=== PATIENT | female | born 1970 | race Caucasian/White ===

== ENCOUNTER 2020-06-10 07:53 | Emergency (ER) | payer OTHER, SELFPAY ==
--- NOTE | ~2020-06-10 | XR_ITS ---
EXAMINATION: XR elbow RT min 3V EXAM DATE: 06/10/2020 08:28 INDICATION: Trauma, right elbow pain. Initial encounter. TECHNIQUE: Right elbow frontal, lateral with flexion, and oblique projections obtained and reviewed. Comparison is made to prior examination from 06/07/2016. FINDINGS: Right elbow anterior humeral line intact. There are no acute fractures or dislocations shelia ntified. There is no subcutaneous gas. There is soft tissue swelling over the elbow posteriorly. T here are no radiopaque foreign bodies. IMPRESSION: 1. XR elbow RT min 3V exam without acute osseous findings. 2. Soft tissue swelling. Reviewed, dictated and finalized at location A. PROVIDER
[2020-06-10 07:59] VITALS: BP 166/105; PULSE 105; RESP 18; TEMP 36.9; O2SAT 98
[2020-06-10] MEDS: HYDROcodone/acetaminophen (*CRX) 5-325 MG TABLET 1 TAB PO (08:25)
[2020-06-10] MEDS: TETANUS,DIPHTHERIA,AC PERTUSSIS ADULT (0.5 ML) BOOSTRIX IM (08:35)
--- NOTE | 2020-06-10 08:42 | ED.FALL ---
HPI - Fall General Chief Complaint: Fall Stated Complaint: fall, right arm pain Time Seen by Provider: 06/10/20 08:02 History of Present Illness HPI Narrative: Patient is a 50-year-old female who presents ER with right elbow pain. Patient reports she was walking down her steps when she slipped on some pandey and drove her right elbow into the ground. She had sudden onset pain. She is developed some swelling and has abrasion over her olecranon. She has limited range of motion due to pain and feels some burning sensation going down her arm. She did not strike her head or lose consciousness. No additional injuries reported. Related Data Allergies Allergy/AdvReac Type Severity Reaction Status Date / Time No Known Allergies Allergy Verified 06/10/20 08:07 Review of Systems Musculoskeletal: Musculoskeletal: Reports arthralgias and Reports joint swelling Integumentary/Breasts: Skin/Breast: Denies pruritus and Denies skin ulcer Comments: elbow abrasion (right) Neurologic: Denies focal weakness and Denies numbness Comments: Burning sensation right arm distal to injury. [facility] Past Medical History Medical History (Updated 06/10/20 @ 09:23 by Alessandro Grant MD) Anxiety GERD (gastroesophageal reflux disease) Surgical History Surgical History (Updated 06/10/20 @ 08:45 by Alessandro Grant MD) History of appendectomy History of History of carpal tunnel release of both wrists History of hysterectomy Family History Family History (Updated 12/19/15 @ 23:21 by DOCTOR UNKNOWN) Father Family history of blood dyscrasia Hypertension Family history of diabetes mellitus in first degree relative Family history of lung cancer Patient's father is Family history of malignant neoplasm of kidney Grandparent Cerebrovascular accident Diabetes mellitus Mother Family history of gastrointestinal disorder Family history of heart disease in male family member before age 55 Sibling Patient's sister is in good health Other Family history of coronary artery disease Family history of malignant neoplasm of cervix Family history of malignant neoplasm of male breast Social History Social History Smoking status: Never smoker Second hand tobacco smoke exposure: No Smoking end date: 05/23/08 Alcohol intake: never Gender identity (if verbalized by the patient): Female Exam Narrative: Exam Narrative: GENERAL: Well-appearing, well-nourished, and in no acute distress. HEAD: Normocephalic, atraumatic. CHEST: Clear to auscultation. No respiratory distress. HEART: Regular rate and rhythm. Normal peripheral pulses. EXTREMITIES: Swelling and abrasion noted over the right olecranon, most comfortable at 90 degrees angulation, has limited flexion extension due to pain. Distal pulses intact. Sensation intact to sharp/soft touch. SKIN: Warm, dry, no rash. NEURO: Alert and oriented x3. PSYCH: Normal mood and affect. Course Course Emergency Course: Patient's range of motion the elbow has improved after pain medication. Burning pain improved. She has been informed of results. She will be placed in a sling for comfort. Tetanus updated. Discharge home. Vital Signs Vital signs: Vital Signs Temperature 98.4 F 06/10/20 07:59 Pulse Rate 105 H 06/10/20 07:59 Respiratory Rate 18 06/10/20 07:59 Blood Pressure 166/105 H 06/10/20 07:59 Pulse Oximetry 98 06/10/20 07:59 Temperature 98.4 F 06/10/20 07:59 Pulse Rate 105 H 06/10/20 07:59 Respiratory Rate 18 06/10/20 07:59 Blood Pressure 166/105 H 06/10/20 07:59 Pulse Oximetry 98 06/10/20 07:59 MDM - Fall Imaging Data Radiologist's impression: ITS Impressions Elbow X-Ray 06/10/20 08:31 IMPRESSION: 1. XR elbow RT min 3V exam without acute osseous findings. 2. Soft tissue swelling. Discharge Plan Discharge Clinical Impression: Contusion of elbow, Abrasion of elbow
[2020-06-10 10:18] VITALS: BP 156/99; PULSE 76; RESP 18; O2SAT 98
== END 2020-06-10 09:45 | disposition home or self-care (01) ==
PROVIDERS: Emergency Provider Emergency Medicine; PCP Family Medicine
DX: S50.01XA Contusion of right elbow, initial encounter (principal); S50.311A Abrasion of right elbow, initial encounter; K21.9 Gastro-esophageal reflux disease without esophagitis; W10.9XXA Fall (on) (from) unspecified stairs and steps, initial encounter; Z23 Encounter for immunization
CPT/HCPCS: 73080; 90471; 90715; 99283; A4565; A9270

== ENCOUNTER 2020-06-25 12:44 | Outpatient (CLI) | payer OTHER, SELFPAY ==
--- NOTE | ~2020-06-25 | MMUS_ITS ---
EXAMINATION: MM diagnostic satya BI w leslie, US breast LT limited HISTORY: Left breast lump for 2 to 3 months TECHNIQUE: ML, MLO and craniocaudal 3-D tomosynthesis images of both breasts were performed and synth etic 2-D images were generated. CAD analysis was submitted and interpreted. High resolution targeted left breast ultrasound at approximately 9:00 and 6:00 was performed. COMPARISON: 09/02/2014 bilateral digital screening mammogram BREAST PARENCHYMAL COMPOSITION: There are scattered areas of fibroglandular density. FINDINGS: MAMMOGRAPHIC FINDINGS: In the posterior mid inner left breast at approximately 9:00 there is a circumscribed approximately 6 mm density corresponding to the area of clinical complaint of left breast lump. This has benign mamm ographic features. Sonographic correlation was obtained. At the lower mid left breast there is a possible circumscribed approximately 4 mm mass. No suspicious mass or architectural distortion, malignant calcification, skin thickening or retractio n of either breast is noted otherwise. ULTRASOUND: 9:00 12 cm from the nipple: Circumscribed sonolucency with through transmission posterior enhancement compatible with cyst, measuring 6.7 x 5.5 x 6.6 mm. This has benign mammographic and sonographic fea tures. At 6:00 near the nipple there is a confluence of ducts which accounts for the mammographic finding. IMPRESSION: 1. No mammographic evidence of malignancy 2. Routine annual mammographic screening is recommended. BI-RADS Category 2: Benign finding(s). Reviewed, dictated and finalized at location A. NING CONSULTANT IMPRESSION: 1. No mammographic evidence of malignancy 2. Routine annual mammographic screening is recommended. BI-RADS Category 2: Benign finding(s).
== END 2020-06-25 12:45 | disposition home or self-care (01) ==
PROVIDERS: PCP Family Medicine; Visit Provider Family Medicine
DX: N63.25 Unspecified lump in the left breast, overlapping quadrants (principal)
CPT/HCPCS: 76642; 77062; 77066; G0279

== ENCOUNTER 2020-08-12 11:37 | Outpatient (CLI) | payer OTHER, SELFPAY ==
--- NOTE | ~2020-08-12 | XR_ITS ---
XR shoulder RT min 2V DATE: 08/12/2020 12:07 INDICATION: Fall. Right shoulder injury, pain TECHNIQUE: 5 views COMPARISON: 06/07/2016 right shoulder 08/11/2016 MR right shoulder examination FINDINGS: No fracture or dislocation, periosteal reaction or bone destruction or abnormal soft tissue calcification. Normal alignment at the acromioclavicular and glenohumeral joints. IMPRESSION: Negative Reviewed, dictated and finalized at location B. IMPRESSION: Negative
--- NOTE | ~2020-08-12 | XR_ITS ---
EXAMINATION: XR_[id number]_CR EXAM DATE: 08/12/2020 12:06 INDICATION: Initial encounter following injury, with pain of the cervical spinal cord injury, right- sided neck pain. Tumor C7. TECHNIQUE: Cervical spine frontal, lateral, lateral swimmers, and open-mouth odontoid projections. C omparison is made to prior examination from 06/08/2015. FINDINGS: There is mild cervical arthropathy. Mild loss of the C4-5 disc height. The vertebral body and disc heights are otherwise well maintained. The vertebral bodies are aligned in the AP dimension. Prevertebral soft tissue and pre-dens space are within normal limits. The odontoid process is intact . The lateral masses of C1 line up with C2. IMPRESSION: Mild cervical spondylosis. Reviewed, dictated and finalized at location A. IMPRESSION: Mild cervical spondylosis.
== END 2020-08-12 11:38 | disposition home or self-care (01) ==
LOC: ANHIMG 11:40
PROVIDERS: PCP Family Medicine; Visit Provider Family Medicine
DX: S14.109A Unspecified injury at unspecified level of cervical spinal cord, initial encounter (principal); X58.XXXA Exposure to other specified factors, initial encounter; M47.892 Other spondylosis, cervical region
CPT/HCPCS: 72040; 73030

== ENCOUNTER 2020-09-22 06:36 | Outpatient (CLI) | payer OTHER, SELFPAY ==
--- NOTE | 2020-09-22 07:09 | ECHO_ITS ---
Patient Info Name: Ava Mcgraw Age: 50 years : 1970 Gender: Female Ht: 63 in Wt: 235 lbs BSA: 2.23 m2 HR: 80 bpm BP: 143 / 88 mmHg Heart Rhythm: Sinus Rhythm Exam Date: 09/22/2020 7:33 AM Exam Location: [facility] Patient Status: Outpatient Admit Date: 09/22/2020 Staff Ordering Physician: Ramses Fernandez DO Preparatory Technician: Nikki Serna RDCS Attending Provider: Ramses Fernandez DO Exam Type: CA echo doppler color flow Study Info Indications R07.9 - Chest pain, unspecified Complete two-dimensional, color flow and Doppler transthoracic echocardiogram is performed. Summary 1. Complete two-dimensional, color flow and Doppler transthoracic echocardiogram is performed. 2. Left ventricular chamber dimension is normal. 3. Left ventricular systolic function is normal, estimated at 60-65%. 4. The left ventricular diastolic function is grade I diastolic dysfunction. 5. E/e' 5 is not elevated. 6. No pulmonary hypertension, estimated pulmonary arterial systolic pressure is 23 mmHg. Left Ventricle E/e' 5 is not elevated. Left ventricular chamber dimension is normal. Left ventricular systolic function is normal, estimated at 60-65%. The left ventricular diastolic function is grade I diastolic dysfunction. Right Ventricle Right ventricular chamber dimension is normal. Right ventricular systolic function is normal. Left Atria Left atrial chamber dimension is normal. Right Atria Right atrial chamber dimension is normal. Aortic Valve The aortic valve is trileaflet. There is no aortic valve stenosis. There is no aortic valve regurgitation. Pulmonic Valve There is no pulmonic regurgitation. Mitral Valve There is no mitral valve stenosis. There is no mitral valve regurgitation. Tricuspid Valve There is no tricuspid valve regurgitation. No pulmonary hypertension, estimated pulmonary arterial systolic pressure is 23 mmHg. Pericardium/Pleural There is no pericardial effusion. Inferior Vena Cava Normal inferior vena cava with >50% collapse upon inspiration consistent with normal right atrial pressure, 5 mmHg. Aorta The aortic root size at the sinus of Valsalva is normal. Left Ventricular Outflow Tract Name Value Normal LVOT 2D LVOT Diameter 2.2 cm LVOT Doppler LVOT Peak Gradient 3 mmHg LVOT Mean Gradient 1 mmHg LVOT VTI 18 cm LVOT VTI/AV VTI Ratio 0.7 LVOT Stroke Volume 68 ml LVOT CO 4.7 l/min LVOT CI 2.1 l/min/m2 Pulmonic Valve Name Value Normal RVOT Doppler RVOT Peak Gradient 1 mmHg PV Doppler PV Peak Gradient
--- NOTE | 2020-09-22 07:09 | EST_ITS ---
Patient Info Name: Ava Mcgraw Age: 50 years : 1970 Gender: Female Ht: 63 in Wt: 235 lbs BSA: 2.23 m2 Exam Date: 09/22/2020 8:32 AM Exam Location: [facility] Patient Status: Outpatient Admit Date: 09/22/2020 Staff Ordering Physician: Ramses Fernandez DO Attending Provider: Ramses Fernandez DO Exercise Technologist: Katelyn Bernal CT Exercise Physician: Ramess Fernandez DO Exam Type: CA stress test treadmill Study Info An exercise stress test was performed. Summary 1. 1. Negative Myron exercise stress test for ischemic ST changes by ECG criteria. 2. 2. Good functional capacity, achieving 9.8 METs of workload. 3. 3. Baseline hypertension. 4. 4. Appropriate HR response to exercise. 5. 5. Appropriate HR recovery at 1 minute post exercise. 6. 6. No imaging with stress testing. 7. 7. Patient informed of the above results. Protocol: Myron Stress ECG Details Stage: REST Duration (min): 1 min : 4 sec Speed (mph): 0.0 Grade (%): 0 HR (bpm): 74 SBP (mmHg): 143 DBP (mmHg): 88 METS: --- Stage: REST Duration (min): 4 min : 29 sec Speed (mph): 0.0 Grade (%): 0 HR (bpm): 79 SBP (mmHg): 143 DBP (mmHg): 88 METS: --- Stage: STAGE 1 Duration (min): 1 min : 0 sec Speed (mph): 1.7 Grade (%): 10 HR (bpm): 100 SBP (mmHg): 143 DBP (mmHg): 88 METS: --- Stage: STAGE 1 Duration (min): 2 min : 0 sec Speed (mph): 1.7 Grade (%): 10 HR (bpm): 102 SBP (mmHg): 143 DBP (mmHg): 88 METS: --- Stage: STAGE 1 Duration (min): 3 min : 0 sec Speed (mph): 1.7 Grade (%): 10 HR (bpm): 104 SBP (mmHg): 143 DBP (mmHg): 88 METS: --- Stage: STAGE 2 Duration (min): 1 min : 0 sec Speed (mph): 2.5 Grade (%): 12 HR (bpm): 115 SBP (mmHg): 143 DBP (mmHg): 88 METS: --- Stage: STAGE 2 Duration (min): 2 min : 0 sec Speed (mph): 2.5 Grade (%): 12 HR (bpm): 123 SBP (mmHg): 211 DBP (mmHg): 72 METS: --- Stage: STAGE 2 Duration (min): 3 min : 0 sec Speed (mph): 2.5 Grade (%): 12 HR (bpm): 125 SBP (mmHg): 211 DBP (mmHg): 72 METS: --- Stage: STAGE 3 Duration (min): 1 min : 0 sec Speed (mph): 3.4 Grade (%): 14 HR (bpm): 137 SBP (mmHg): 211 DBP (mmHg): 72 METS: --- Stage: STAGE 3 Duration (min): 1 min : 37 sec Speed (mph): 3.4 Grade (%): 14 HR (bpm): 143 SBP (mmHg): 211 DBP (mmHg): 72 METS: --- Stage: RECOVERY Duration (min): 0 min : 22 sec Speed (mph): 0.0 Grade (%): 0 HR (bpm): 137 SBP (mmHg): 211 DBP (mmHg): 72 METS: --- Stage: RECOVERY Duration (min): 1 min : 22 sec Speed (mph): 0.0 Grade (%): 0 HR (bpm): 114 SBP (mmHg): 211 DBP (mmHg): 72 METS: --- Stage: RECOVERY Duration (min): 2 min : 3 sec Speed (mph): 0.0 Grade (%): 0 HR (bp
== END 2020-09-22 06:37 | disposition home or self-care (01) ==
PROVIDERS: PCP Family Medicine; Visit Provider Internal Medicine Cardiovascular Disease
DX: R06.00 Dyspnea, unspecified (principal); R07.9 Chest pain, unspecified
CPT/HCPCS: 93017; 93306

== ENCOUNTER 2023-04-04 05:45 | Emergency (ER) | payer SELFPAY ==
[2023-04-04] VITALS (8 sets, daily range): BP systolic 115–145; BP diastolic 87–108; PULSE 80–98; RESP 12–24; TEMP 36.3; O2SAT 95–99
--- NOTE | ~2023-04-04 | XR_ITS ---
Clinical Indication: Shortness of breath PA and lateral views of the chest: Comparison: None Findings: The lungs are clear, without evidence of focal consolidation or pleural effusion. Cardiome diastinal silhouette is within normal limits. Bones and soft tissues are unremarkable. Impression: Normal chest. Reviewed, dictated and finalized at [facility]. ANCE AND CONTROL SYSTEM ENGINEER Impression: Normal chest.
--- NOTE | 2023-04-04 05:47 | ECG_ITS ---
Measurements Intervals [place] Rate: 87 P: 29 KS: 159 QRS: 5 QRSD: 101 T: 37 QT: 365 QTc: 441 Interpretive Statements SINUS RHYTHM POSSIBLE LEFT ATRIAL ENLARGEMENT BASELINE ARTIFACT- I, II, III, AVR, AVL, AVF, V1-V2, V5 BORDERLINE ECG NO PREVIOUS ECG AVAILABLE FOR COMPARISON Electronically Signed On 04-04-2023 6:32:33 [employer] INTERFACE DEVELOPER by Ramses Fernandez D.O.
--- NOTE | 2023-04-04 06:03 | PC.NURSE ---
Patient states she took NyQuil and Robitussin last night for symptoms.
[2023-04-04 06:19] LABS: Basophils Absolute Auto 0.1 K/mm3 (0.0-0.1); Basophils Percent Auto 0.6 % (0.2-1.2); Eosinophils Absolute Auto 0.2 K/mm3 (0-0.3); Eosinophils Percent Auto 2.3 % (0-4.4); Hematocrit 47.3 % (37.0-47.0); Hemoglobin 15.4 g/dL (12.0-15.0); Immature Granulocyte Absolute 0.03 K/mm3 (0.00-0.031); Immature Granulocyte Percent A 0.3 % (0-0.5); Lymphocytes Absolute Auto 2.69 K/mm3 (0.9-3.2); Lymphocytes Percent Auto 30.8 % (18.3-44.2); Mean Corpuscular HGB Conc 32.6 g/dl (32-36); Mean Platelet Volume 9.7 fl (7.4-10.4); Monocytes Absolute Auto 0.6 K/mm3 (0.1-0.6); Monocytes Percent Auto 6.9 % (2.6-8.5); Neutrophils Absolute Auto 5.2 K/mm3 (1.3-6.7); Neutrophils Percent Auto 59.1 % (45.5-73.1); Platelet Count Result 281 k/mm3 (150-375); Red Blood Count 5.14 M/mm3 (4.2-5.4); Red Cell Distribution Width 12.2 % (11.5-14.5); White Blood Count 8.7 K/mm3 (4.5-10.0)
[2023-04-04 06:30] LABS: Alanine Aminotransferase 20 U/L (6-35); Albumin Level 4.3 g/dL (3.5-5.1); Alkaline Phosphatase 118 U/L (38-126); Anion Gap 10 mmol/L (8-16); Aspartate Amino Transferase 23 U/L (14-36); Bilirubin,Total 0.7 mg/dL (0.2-1.3); Blood Urea Nitrogen 20 mg/dL (7-17); Calcium 9.2 mg/dL (8.4-10.2); Carbon Dioxide 25 mmol/L (22-30); Chloride 108 mmol/L (98-107); Estimated CRCL calculation 78 ml/min; Estimated Glomerular Filt Rate > 60; Glucose 114 mg/dL (65-110); Potassium 4.1 mmol/L (3.4-5.0); Sodium 143 mmol/L (137-145)
[2023-04-04 06:56] LABS: Influenza A QL RT-PCR Negative (Negative); Influenza B QL RT-PCR Negative (Negative); RSV RNA, RT-PCR Negative (Negative); SARS-CoV-2 RNA PCR Negative (Negative)
--- NOTE | 2023-04-04 07:56 | ED.GENADULT ---
HPI - General Adult General Chief complaint: Shortness of Breath/Dyspnea Stated complaint: SOB, CP, Back pain, cough Time Seen by Provider: 04/04/23 06:59 History of Present Illness HPI narrative: Patient is a 53-year-old female who presents ER with cough. Reports for last couple weeks she has had sinus congestion with sore throat and productive cough. The last couple nights she has been gagging on her secretions that wake her up from sleep and she is coughing at that time. No fevers or chills. No exertional chest pain but has pain in her chest wall from coughing. She has tried [id number] cough drops and Vicks vapor rub without improvement. She is concerned she may have bronchitis. Cough is productive of clear sputum. Related Data Home Medications Medication Instructions Recorded Confirmed cholecalciferol (vitamin D3) 1,250 1,250 mcg PO WEEKLY 09/03/20 10/16/20 mcg (50,000 unit) capsule cyclobenzaprine 10 mg tablet 10 mg PO ONCE PRN 09/03/20 10/16/20 famotidine 20 mg tablet 20 mg PO BID 09/03/20 10/16/20 ibuprofen 600 mg tablet 600 mg PO Q6H PRN 09/03/20 10/16/20 omeprazole 20 mg capsule,delayed 20 mg PO DAILY 09/03/20 10/16/20 release solifenacin 5 mg tablet 5 mg PO DAILY 09/03/20 10/16/20 Allergies Allergy/AdvReac Type Severity Reaction Status Date / Time No Known Allergies Allergy Verified 10/16/20 10:01 Review of Systems Review of Systems: All systems reviewed & are unremarkable except as noted in HPI and below Constitutional: Constitutional: Denies chills, Denies fatigue and Denies fever(s) ENT: Reports nasal congestion and Reports sore throat Cardiovascular: Cardiovascular: Denies chest pain, Denies rapid heart rate and Denies radiating jaw, neck or arm pain Respiratory: Respiratory: Reports cough, Denies dyspnea and Reports wheezing Gastrointestinal: Gastrointestinal: Reports no additional gastrointestinal complaints Genitourinary: Genitourinary: Reports no additional female genitourinary complaints [facility] Past Medical History Medical History Anxiety GERD (gastroesophageal reflux disease) Surgical History Surgical History History of appendectomy History of History of carpal tunnel release of both wrists History of hysterectomy Family History Family History Father Family history of blood dyscrasia Hypertension Family history of diabetes mellitus in first degree relative Family history of lung cancer Patient's father is Family history of malignant neoplasm of kidney Grandparent Cerebrovascular accident Diabetes mellitus Mother Family history of gastrointestinal disorder Family history of heart disease in male family member before age 55 Sibling Patient's sister is in good health Other Family history of coronary artery disease Family history of malignant neoplasm of cervix Family history of malignant neoplasm of male breast Social History Social History Smoking packs per day: 0.5 Smoking cigarettes per day: 10.0 Years smoked: 30 Smoking pack-years: 15.00 Smoking status: Current every day smoker Second hand tobacco smoke exposure: No Smoking end date: 05/23/08 Alcohol intake: never Gender identity (if verbalized by the patient): Female Exam Narrative: GENERAL: Well-appearing, well-nourished, and in no acute distress. HEAD: Normocephalic, atraumatic. ENT: Mucous membranes moist. CHEST: Clear to auscultation. No respiratory distress. HEART: Regular rate and rhythm. No murmur heard. Normal peripheral pulses. ABDOMEN: Soft, nontender, nondistended. EXTREMITIES: Normal range of motion. No edema. SKIN: Warm, dry, no rash. NEURO: Alert and oriented x3. PSYCH: Nor
== END 2023-04-04 08:12 | disposition home or self-care (01) ==
PROVIDERS: Emergency Medicine; Emergency Provider Emergency Medicine; PCP Family Medicine
DX: J06.9 Acute upper respiratory infection, unspecified (principal); Z20.822 Contact with and (suspected) exposure to COVID-19; K21.9 Gastro-esophageal reflux disease without esophagitis; Z90.710 Acquired absence of both cervix and uterus; Z87.891 Personal history of nicotine dependence; R94.31 Abnormal electrocardiogram [ECG] [EKG]
CPT/HCPCS: 36415; 71046; 80053; 85025; 87637; 93005; 99284

== ENCOUNTER 2024-03-01 14:59 | Outpatient (CLI) | payer MEDICAID, SELFPAY ==
--- NOTE | ~2024-03-01 | CT_ITS ---
EXAMINATION:CT lung screening DATE: 03/01/2024 15:12 INDICATION: Personal history of nicotine dependence. Current smoker with 20 pack year history. TECHNIQUE: Computed tomography (CT) of the chest was performed without intravenous contrast. Automate d exposure control and iterative reconstruction technique were employed. The dose-length product (DLP ) was 258.23 mGy-cm. COMPARISON: CT abdomen and pelvis 01/19/2016 FINDINGS: Calcified right lung nodules and calcified right hilar lymph nodes are consistent with old granulomatous disease. There is a 3 mm nodule in left upper lobe. No pleural effusion. The heart size is normal. No pericardial effusion. There is mild thoracic spondylosis. IMPRESSION: 1. Lung-RADS category 2: Benign appearance or behavior. Continue annual screening with noncontrast lo w-dose chest CT in 12 months. Reviewed, dictated and finalized at location A. IMPRESSION: 1. Lung-RADS category 2: Benign appearance or behavior. Continue annual screeni ng with noncontrast low-dose chest CT in 12 months.
== END 2024-03-01 15:00 | disposition home or self-care (01) ==
PROVIDERS: PCP Nurse Practitioner Family; Visit Provider Nurse Practitioner Family
DX: Z12.2 Encounter for screening for malignant neoplasm of respiratory organs (principal); Z87.891 Personal history of nicotine dependence
CPT/HCPCS: 71271